=== PATIENT | male | born 1965 | race Two or more races ===

== ENCOUNTER 2024-11-09 16:41 | Emergency (ER) | payer OTHER ==
[~2024-11-09] VITALS: Ht 182.9 cm; Wt 113.4 kg
[2024-11-09] MEDS ORDERED: PRILOSEC OTC20 MG (16:49)
[2024-11-09] MEDS ORDERED: METFORMIN HCL1000 MG (16:49)
[2024-11-09] MEDS ORDERED: KETOROLAC TROMETHAMINE 60 MG VIAL IM ONE (17:30)
== END 2024-11-09 19:14 | disposition home or self-care (01) ==
LOC: ER 16:41
DX: S79.812A Other specified injuries of left hip, initial encounter (principal); W19.XXXA Unspecified fall, initial encounter; Y93.89 Activity, other specified; Y92.832 Beach as the place of occurrence of the external cause; Y99.8 Other external cause status; E11.9 Type 2 diabetes mellitus without complications; Z79.84 Long term (current) use of oral hypoglycemic drugs
CPT/HCPCS: 73502; 96372; 99283; J1885